=== PATIENT | female | born 1995 | race Caucasian/White ===

== ENCOUNTER 2016-03-25 23:59 | Emergency (ER) ==
[2016-03-26 00:21] LABS: MANUAL DIFF NEEDED? NO
[2016-03-26 00:32] LABS: BASO% 0.1 % (0.0-0.8); EOS# 0.16 X1000 (0.0-0.7); EOS% 2.1 % (0.0-10.0); HEMATOCRIT 38.1 % (37.0-47.0); HEMOGLOBIN 12.7 g/dL (12.0-16.0); LYMPH% 39.1 % (20.5-51.1); MCH 31.1 PG (27-31); MCHC 33.3 g/dL (33-37); MCV 93.2 FL (81-99); MONO# 0.67 X1000 (0.11-0.59); MONO% 8.7 % (1.7-9.3); MPV 8.5 FL (7.4-10.4); PLT 316 X1000 (130-400); RBC 4.09 XMIL (4.2-5.4)
[2016-03-26 00:38] LABS: AGAP 13; ALBUMIN 4.2 g/dL (3.5-5.0); ALKALINE PHOSPHATASE 83 U/L (32-104); AMYLASE 40 U/L (20-200); BUN 7 mg/dL (8-22); CALCIUM 9.3 mg/dL (8.8-10.2); CHLORIDE 102 mmol/L (98-107); COSMO 275; GOT 25 U/L (10-30); GPT 23 U/L (10-36); LIPASE 19 U/L (13-60); POTASSIUM 3.6 mmol/L (3.5-5.1); SODIUM 139 mmol/L (136-145); TCO2 24 mmol/L (25-35); TOTAL BILIRUBIN 0.31 mg/dL (0.20-1.00); TOTAL PROTEIN 7.6 g/dL (6.3-8.3); URINE CULTURE NEEDED? NO; URINE MICRO REVIEW NEEDED? NO; URINE SOURCE CLEAN CATCH
[2016-03-26 00:41] LABS: BILIRUBIN URINE NEGATIVE (NEGATIVE); BLOOD URINE NEGATIVE (NEGATIVE); COLOR YELLOW; GLUCOSE URINE NEGATIVE (NEGATIVE); LEUKOCYTES URINE NEGATIVE (NEGATIVE); NITRITE URINE NEGATIVE (NEGATIVE); PH URINE 6.5; PROTEIN URINE NEGATIVE (NEGATIVE); SP GRAVITY URINE 1.007; TURBIDITY URINE CLEAR (CLEAR); UR EPITHELIAL CELLS <10 /HPF (<10); URINE BACTERIA 1+ /HPF; URINE RBC <10 /HPF (<10); URINE WBC <10 /HPF (<10); UROBILINOGEN URINE NORMAL (NORMAL)
--- NOTE | 2016-03-26 00:57 | PROVIDER DOCUMENTATION ---
HPI-Abdominal Pain/GI Problem - General Source: patient - History of Present Illness-ABD Abdominal Pain Onset Location: reports: generalized abdomen Pain Radiation: reports: no radiation Quality of Pain: reports: cramping Severity in ED: reports: mild Onset/Duration: reports: this evening Timing: reports: still present Associated Symptoms: reports: headaches, nausea Similar Symptoms Previously?: Yes Recently seen or treated by another doctor?: Yes <Neela Meeks - Last Filed: 03/26/16 00:58> <Souleymane Lui - Last Filed: 03/26/16 01:36> - General Chief Complaint: Abdominal Pain Stated Complaint: ABD PAIN, NAUSEA, CONSTIPATED, CAMPBELL Time Seen by Provider: 03/26/16 00:14 Allergies/Adverse Reactions: Patient Allergies Allergy/AdvReac Type Severity Reaction Status Date / Time amoxicillin [Amoxicillin] Allergy Intermediate RASH; Verified 03/26/16 00:15 VOMITING - History of Present Illness-ABD Nature of Presenting Problems: 20 y/o f presents to the ed with abdominal pain. pt states she was seen here X 2 weeks ago with the same symptoms and was diagnosed with polyuria by Dr. Boo. pt denies any fever/chills. (Neela Meeks) Review of Systems - Adult - REVIEW OF SYSTEMS - ADULT Constitutional: denies: chills, fever Gastrointestinal: reports: abdominal pain, nausea. denies: diarrhea, vomiting Neurological: reports: headache/migraines. denies: dizziness/vertigo <Neela Meeks - Last Filed: 03/26/16 00:58> Past History - Adult - PAST MEDICAL HISTORY-ADULT Review of Records: reports: Old Records Reviewed, Nursing Assessment Review, Medications Reviewed Major Childhood Illnesses: reports: denies history Cardiovascular: reports: denies history Respiratory: reports: denies history Gastrointestinal: reports: denies history Obstetrical/Gynecological: reports: denies history Genitourinary: reports: denies history Musculoskeletal: reports: denies history Neurological: reports: headaches/migraines Endocrine/Immune: reports: denies history Other Conditions: reports: acne - PRIOR SURGERIES/PROCEDURES Surgical/Procedure History: reports: other (tubes in ears, cyst removal from ear ) - IMMUNIZATION STATUS Childhood Immunizations: See Nurse Assessment Flu Vaccine: See Nurse Assessment - FAMILY HISTORY Family History: reviewed, not pertinent - SOCIAL HISTORY Smoking: cigar Provider spent 3-5 mins advising pt. on dangers of tobacco.: Discussed manners to quit use, and f/u contacts for add'l counseling. Substance Use: none/never Alcohol Use Frequency: never <Neela Meeks - Last Filed: 03/26/16 00:58> Physical Exam-General - PHYSICAL EXAM-ADULT Initial Vital Signs Reviewed: Yes - CONSTITUTIONAL General Appearance: appears well, alert, no apparent distress - EYES Eyes: PERRL/EOMI, pink conjunctivae, fundi clear, no AV nicking - HEAD, EARS, NOSE, MOUTH & THROAT HENMT: normocephalic/atraumatic, moist mucous membranes, normal ENT inspection - NECK Neck: non-tender, full range of motion, supple - RESPIRATORY Respiratory: chest non-tender, lungs clear, normal breath sounds - CARDIOVASCULAR Cardiovascular: normal peripheral pulses, regular rate, rhythm - GASTROINTESTINAL (ABDOMEN) Abdominal Exam: normal bowel sounds, tenderness - LYMPHATIC Lymphatic: no adenopathy - MUSCULOSKELETAL Back Exam: normal inspection - SKIN Integumentary: normal color, normal turgor, warm/dry - PSYCHIATRIC Psych/Mental Status: normal mood/affect, normal thought content, normal thought process, oriented x 3 <Neela Meeks - Last Filed: 03/26/16 00:58> Progress <Neela Meeks - Last Filed: 03/26/16 00:58> - XRAY 1 XRAY Study: Chest, Abdomen XRAY Interpretation: nad <Souleymane Lui - Last Filed: 03/26/16 01:36> - PLAN OF CARE/RESULTS Progress/Plan/Lab Results: Laboratory Tests 03/26/16 03/26/16 03/26/16 00:15 00:15 00:15 WBC 7.67 RBC 4.09 L Hgb 12.7 Hct 38.1 MCV 93.2 MCH 31.1 H MCHC 33.3 RDW Std Deviation 12.1 Plt Count 316 MPV 8.5 Neut % (Auto) 50.0 Lymph % (Auto) 39.1 [place] % (Auto) 8.7 Eos % (Auto) 2.1 Baso % (Auto) 0.1 Neut # (Auto) 3.83 Lymph # (Auto) 3.00 [place] # (Auto) 0.67 H Eos # (Auto) 0.16 Baso # (Auto) 0.01 Sodium 139 Potassium 3.6 Chloride 102 Carbon Dioxide 24 L Anion Gap 13 BUN 7 L Creatinine 0.6 Estimated GFR/1.73 m2 > 60 BUN/Creatinine Ratio 12 Glucose 87 Calculated Osmolality 275 Calcium 9.3 Total Bilirubin 0.31 AST 25 ALT 23 Alkaline Phosphatase 83 Total Protein 7.6 Albumin 4.2 Globulin 3.4 Albumin/Globulin Ratio 1.2 Amylase 40 Lipase 19 Urine Source CLEAN CATCH Urine Color YELLOW Urine Turbidity CLEAR Urine pH 6.5 Ur Specific [place] 1.007 Urine Protein NEGATIVE Ur Glucose (Stick) NEGATIVE Ur Ketones (Stick) NEGATIVE Urine Blood NEGATIVE Urine Nitrite NEGATIVE Urine Bilirubin NEGATIVE Urobilinogen Dipstick NORMAL Urine Leukocytes NEGATIVE Urine WBC (Auto) <10 Urine RBC (Auto) <10 U Epithel Cells (Auto) <10 Urine Bacteria (Auto) 1+ Orders Category Date Time Status ED: Urine Bedside ORDERED Care 03/26/16 00:03 Active Saline Loc NOW Care 03/26/16 00:02 Active NPO Diet 03/26/16 00:03 Active FLAT/UPRIGHT ABD/1 VIEW CHEST [RAD] Stat Exams 03/26/16 00:49 Taken AMYLASE [CHEM] Stat Lab 03/26/16 00:15 Completed CBC WITH ELECTRONIC DIFF [HEME] Stat Lab 03/26/16 00:15 Completed COMPREHENSIVE METABOLIC PANEL [CHEM] Stat Lab 03/26/16 00:15 Completed LIPASE [CHEM] Stat Lab 03/26/16 00:15 Completed URINALYSIS W/POSS RFLX CULT [URINALYSIS] Stat Lab 03/26/16 00:15 Completed Vital Signs Temp Pulse Resp BP Pulse Ox 03/26/16 00:11 97.4 F L 105 H 18 147/62 100 amoxicillin [Amoxicillin] Allergy (Intermediate, Verified 03/26/16 00:15) RASH; VOMITING No Home Medications 03/04/16 Dietary Diet NPO Start TueMar 26 0003 Laboratory 03/26/16 03/26/16 03/26/16 00:15 00:15 00:15 WBC 7.67 RBC 4.09 L Hgb 12.7 Hct 38.1 MCV 93.2 MCH 31.1 H MCHC 33.3 RDW Std Deviation 12.1 Plt Count 316 MPV 8.5 Neut % (Auto) 50.0 Lymph % (Auto) 39.1 [place] % (Auto) 8.7 Eos % (Auto) 2.1 Baso % (Auto) 0.1 Neut # (Auto) 3.83 Lymph # (Auto) 3.00 [place] # (Auto) 0.67 H Eos # (Auto) 0.16 Baso # (Auto) 0.01 Sodium 139 Potassium 3.6 Chloride 102 Carbon Dioxide 24 L Anion Gap 13 BUN 7 L Creatinine 0.6 Estimated GFR/1.73 m2 > 60 BUN/Creatinine Ratio 12 Glucose 87 Calculated Osmolality 275 Calcium 9.3 Total Bilirubin 0.31 AST 25 ALT 23 Alkaline Phosphatase 83 Total Protein 7.6 Albumin 4.2 Globulin 3.4 Albumin/Globulin Ratio 1.2 Amylase 40 Lipase 19 Urine Source CLEAN CATCH Urine Color YELLOW Urine Turbidity CLEAR Urine pH 6.5 Ur Specific [place] 1.007 Urine Protein NEGATIVE Ur Glucose (Stick) NEGATIVE Ur Ketones (Stick) NEGATIVE Urine Blood NEGATIVE Urine Nitrite NEGATIVE Urine Bilirubin NEGATIVE Urobilinogen Dipstick NORMAL Urine Leukocytes NEGATIVE Urine WBC (Auto) <10 Urine RBC (Auto) <10 U Epithel Cells (Auto) <10 Urine Bacteria (Auto) 1+ Pt states that she feels well but is requesting the results of her test. Went over the results and she states that she feels well and is ready to go home. Will d/c home. (Souleymane Lui) Departure <Neela Meeks - Last Filed: 03/26/16 00:58> - Departure Time of Disposition Order: 01:35 Certified Medical Emergency: Emergent <Souleymane Lui Michel - Last Filed: 03/26/16 01:36> - Departure DIAGNOSIS: Constipation Qualifiers: Constipation type: other constipation type Qualified Code(s): K59.09 - Other constipation Disposition: HOME 01 Condition: Good Additional Instructions: Take medication as prescribed. Eat a high fiber diet. Follow up with your primary care provider. ED Follow Up Instructions: You have been treated by a care provider in the Emergency Department. These instructions are being provided to you so you can have an understanding of how to care for yourself upon discharge. Upon discharge from the Emergency Department, you are responsible for making arrangements for follow-up care by a physician of your choice. Take all prescribed medications as directed. Return to the Emergency Department immediately for any new or worsening symptoms. You may call the Physician Referral phone number at [phone] to obtain a list of Physicians who are taking new patients. Prescriptions: Polyethylene Glycol 3350 [Miralax] 17 gm PO DAILY #5 [email or web address] Attestation - Physician/ Mid-level Attestation Patient care was provided by Mid-level provider (PROTECTIVE SIGNAL OPERATIONS SUPERVISOR/PA):: Yes Mid-level provider:: Souleymane Lui Mid-level documentation review:: The Mid-level provider documentation, treatment plan and medical decision making was reviewed by the physician who agrees with all treatment and medical decision making by the MLP. <Souleymane Lui - Last Filed: 03/26/16 01:36> Physician Attestation
[2016-03-26 01:53] VITALS: BP 123/61
--- NOTE | 2016-03-26 08:07 | Diag Imaging Result Document ---
PROCEDURE NAME: FLAT/UPRIGHT ABD/1 VIEW CHEST - 03/26/2016 FLAT AND UPRIGHT ABDOMEN: FINDINGS: There is a fair amount of stool in the ascending and transverse colon without evidence of dilatation. The stomach and small bowel are not distended, and there is no evidence of organomegaly or mass. IMPRESSION: Mild constipation. PA CHEST: FINDINGS: Normal chest.
== END 2016-03-26 01:51 | disposition home or self-care (01) ==
LOC: ED 23:59
DX: K59.09 Other constipation (principal); R10.84 Generalized abdominal pain; R51 Headache; R11.0 Nausea; R10.819 Abdominal tenderness, unspecified site; F17.290 Nicotine dependence, other tobacco product, uncomplicated; Z71.6 Tobacco abuse counseling
CPT/HCPCS: 36415; 74022; 80053; 81001; 81025; 82150; 83690; 85025; 99283